=== PATIENT | male | born 1995 | race Caucasian/White ===

== ENCOUNTER → 2016-07-18 | Outpatient (CLI) | payer BC, OTHER ==
--- NOTE | ~2016-07-18 | EEG ---
[facility] [address] ELECTROENCEPHALOGRAM Name: ARIN IGLESIAS Room #: [facility]ITAL[facility] [id number] Admission: 07/18/16 Attend Phys: Michoacano Cagle MD Discharge: Date of : 89 Report #: [id number] THIS REPORT FOR: //name// CC: Michoacano Rodriguez DATE OF SERVICE: 07/18/2016 This patient is being evaluated for paresthesias and headache. EEG was done by placing the electrodes by standard 10-20 system of electrode placement. Both referential and sequential montages were used for recording. Background activity in this patient's EEG is about 11 Hz and 40 microvolts. This is a symmetrical activity. Photic stimulation was unremarkable. Hyperventilation was carried out and that demonstrated bilateral slowing and some eye movements. A large portion of this EEG was obtained when the patient was asleep and that demonstrated normal sleep related activity. IMPRESSION: This patient's EEG is within normal limits. Thank you very much for this referral. <ELECTRONICALLY SIGNED> By: Michoacano Cagle MD 07/25/162050 1815 17 Michoacano Cagle MD /nt
== END ==
LOC: NEURO 08:33
DX: G43.909 Migraine, unspecified, not intractable, without status migrainosus (principal); H54.7 Unspecified visual loss; R20.0 Anesthesia of skin